=== PATIENT | male | born 1960 | race Caucasian/White ===

== ENCOUNTER 2016-09-25 17:11 | Emergency (ER) | payer OTHER ==
[~2016-09-25] VITALS: Ht 182.9 cm; Wt 82.7 kg
[~2016-09-25 17:11] MED LIST: EZET10TA PO; LISI10TA2 PO; SIMV80TA PO
[2016-09-25 17:22] VITALS: BP 141/91; PULSE 85; RESP 20; O2SAT 99
--- NOTE | 2016-09-25 18:06 | ED.REPORT ---
HPI-Extremity Problem Lower Date of Service Sep 25, 2016 ED Provider: Vincent Winters MD A 56 year old male presents to the ED complaining of leg leg pain that began 3 months ago. Patient was bit by a dog 3 months ago and recently visited Dr. Baugh on 09/14. He presented with left lower extremity pain and infectious symptoms following a dog bite. Culture was positive for serratia and he was prescribed Avelox. Patient recently finished his Avelox treatment 2 days ago. His current associated symptoms include chills, increased pain and swelling. His pain is exacerbated by walking. Patient reports that he was laying down when the swelling became increasingly worse. He took ibuprofen with little relief. He denies fever. Nursing Notes Stated Complaint: LEG HURTS Chief Complaint: Extremity Trauma Nursing Notes Reviewed: Yes Allergies: Coded Allergies: vancomycin (Verified Allergy, Intermediate, Lightheadedness, nausea, tingling when urinating, flushing, , 07/14/09) Lightheadedness, nausea, tingling when urinating, flushing, itching clindamycin (Verified Allergy, Unknown, 12/25/14) rifampin (Verified Allergy, Unknown, 12/25/14) Scheduled Ezetimibe (Zetia) 10 Mg Tablet 10 MG PO DAILY Lisinopril (Lisinopril) 10 Mg Tablet 10 MG PO DAILY Moxifloxacin (Avelox) 400 Mg Tablet 400 MG PO DAILY Simvastatin (Zocor) 80 Mg Tablet 40 MG PO HS General Time Seen by MD: 18:06 Chief Complaint Leg injury left Hx Obtained From: Patient Arrived By: Walk-in Onset Occurred: More than a week ago... (3 months) Symptom Duration: Since onset Caused by: Animal bite (Dog) Location: : Leg left Quality: Painful Severity: Current: Mild Severity: Maximum: Moderate Associated with: Reports: Swelling, Unable to walk, Denies: Fever Pertinent Negative: Pt denies other symptoms Exacerbated by: Movement (Walking ) Recent Healthcare: No recent hospitalization, Recent doctor visit Past Medical History Past Medical History Notes: PCP: Dr. Ceja Past Medical History Hx of kidney stones Past Surgical History Left shoulder diagnostic arthroscopy Smoking History Unknown if Ever Smoker Social History Other Social History: Good social support, Local resident Ambulatory Status Independent Review of Systems Constitutional: Reports: Chills, Denies: Fever Musculoskeletal: Reports: Extremity pain (left leg pain ), Extremity swelling ( left leg swelling ) Neurologic: Denies: Change LOC Complete sys rev & neg: except as marked. Respiratory: Denies: Shortness of breath Cardiovascular: Denies: Chest pain GI: Denies: Abdominal pain, Nausea, Vomiting Physical Exam Initial Vital Signs Vital Signs (First) Date Time Temp Pulse Resp B/P Pulse Ox O2 Delivery O2 Flow Rate FiO2 09/25/16 17:22 37.2 85 20 141/91 99 Room Air Initial VS: Reviewed Head / Eyes: Atraumatic, Normocephalic, PERRL Upper Extremities: Vascular intact, Neuro intact, No swelling, No tenderness Skin: Warm, Dry, No cyanosis Neurologic: Alert, Oriented, Nonfocal Psychiatric: Mood/affect normal, Behavior normal, Normal thought content Lower Extremity / Pelvis / MS: Atraumatic, Neurologic intact, Vascular intact Left Leg / Calf: Positive: Erythema present (5cm x 5cm area of erythema and warmth), Warmth present LOWER EXTREMITIES: Scattered lesions No active pustules No lymphatic streaking Erythema 6cm proximal No fluctuance Ankle / Foot: Atraumatic, Neurologic intact, Vascular intact General/Constitutional: Awake, Alert, No acute distress Head / Eyes: Atraumatic, Normocephalic Interpretation & Diagnostics MRI TIBIA FIBULA LEFT w/o contrast 08/18/16 Read by Radiology IMPRESSION: Lateral lower leg and ankle subcutaneous edema and superficial fascia fluid. Possible subcutaneous phlegmon (versus early abscess) as detailed above, although technically indeterminate and recommend clinical correlation No marrow signal changes or abnormal enhancement to suggest osteomyelitis Dictated by: Roque Cervantes MD 08/18/2016 191 US Soft Tissue/Musculoskeletal IMPRESSION: No evidence for deep venous thrombosis is found in the left lower extremity with this duplex venous Doppler study. Dictated by: Osman Mallory M.D. on 09/25/2016 at 18:51 Exam Performed by: Allied health pract Exam Interpreted by: Radiologist Re-Eval/Medical Decision Source of Hx: Old records (Dr. Baugh prior record reviewed ) Re-Evaluation/Progress : Time of Eval: 18:47 Patient Status: Condition improved Re-Evaluation/Progress Note: Patient is rechecked. He is informed of his US results and diagnosis. All of the patient's questions are addressed. He understands and agrees with the treatment plan. Consultation : Referral / Consult Name: Kwame Baugh MD Call Returned at: 18:54 Core Sticker: Will see patient, Agrees with eval, Agrees with plan Note: Infectious disease Counseled Regarding: Diagnosis, Need for follow-up, When/why to return to ED Discharge & Departure Impression: Primary Impression: Cellulitis Site of cellulitis: extremity Site of cellulitis of extremity: lower extremity Laterality: left Qualified Code: L03.116 - Cellulitis of left lower limb Disposition: Home Discharge Condition All VS Reviewed: Yes Condition: Stable Additional Instructions: Emergency Department evaluation included interview and examination ultrasound for the venous thrombosis and discussion with Dr. Baugh the infectious disease emergency management consultant. We gave Levaquin 750 mg 1 dose. Avelox 400 mg daily is restarted and should be continued until you see Dr. Baugh. Call tomorrow, we spoke with Dr. Baugh and he plans to see you on Monday. Return emergency Department for fevers severe increase in swelling or pain in the leg. Keep left leg elevated when able. Referrals: Kwame Baugh MD Scribe Attestation Portions of this note were transcribed by Karon Agrawal. I, Dr. Winters personally performed the history, physical exam and medical decision-making; I reviewed and confirmed the accuracy of the information in the transcribed note. Signed by: Karon Agrawal, 09/25/16, 2039. copies to: Catracho Ceja Donald L MD Sep 25, 2016 18:06 KARON AGRAWAL Sep 25, 2016 18:11
[2016-09-25] MEDS ORDERED: levoFLOXacin 750 mg Tablet PO ONE (18:50)
--- NOTE | 2016-09-25 18:53 | DRSVH ---
PROCEDURE: US VEINOUS LEG DUPLEX UNILATERAL, LEFT INDICATIONS: L leg swelling and pain TECHNIQUE: Real-time imaging, as well as color and pulse Doppler interrogation, were performed of the lower extr emity deep veins from the inguinal ligament to the popliteal fossa. COMPARISON: None. FINDINGS: The deep veins are normally compressible, and free of intraluminal thrombus. Color and pu lse Doppler demonstrate normal phasic intraluminal flow. There is normal augmentation response to di stal compression maneuver. IMPRESSION: No evidence for deep venous thrombosis is found in the left lower extremity with this du plex venous Doppler study. Dictated by: Osman Mallory M.D. on 09/25/2016 at 18:51 Approved by: Osman Mallory M.D. on 09/25/2016 at 18:51
[2016-09-25] MEDS ORDERED: MOXI400T2 PO (20:04)
[2016-09-25 20:15] VITALS: BP 137/91; PULSE 95; RESP 18; O2SAT 97
== END 2016-09-25 20:16 | disposition home or self-care (01) ==
LOC: SED 17:11
DX: L03.116 Cellulitis of left lower limb (principal); W54.0XXD Bitten by dog, subsequent encounter; Y93.9 Activity, unspecified; Y99.8 Other external cause status; Y92.9 Unspecified place or not applicable; I10 Essential (primary) hypertension; Z86.39 Personal history of other endocrine, nutritional and metabolic disease; Z88.1 Allergy status to other antibiotic agents